=== PATIENT | female | born 1965 | race Caucasian/White ===

== ENCOUNTER 2021-07-12 15:20 | Emergency (ER) | payer BC ==
[2021-07-12] MEDS ORDERED: Ibuprofen 800 MG Tab PO ONE ×2 (15:21→16:46)
--- NOTE | 2021-07-12 15:40 | EDM.PDOC ---
ED HPI GENERAL MEDICAL PROBLEM - General Stated Complaint: FALL AND POSSIBLY BROKE RIB R SIDE Time Seen by Provider: 07/12/21 15:35 Source of Information: Reports: Patient History Limitations: Reports: No Limitations - History of Present Illness INITIAL COMMENTS - FREE TEXT/NARRATIVE: 56-year-old female who was carrying a box out to her son's truck at about 2:45 to 3 PM today and there was uneven ground next to a sidewalk and she stepped off of the sidewalk not knowing it and lost her balance and fell striking on her right side and also doing an end over end. She did not hit her head. There was no loss of consciousness. She did scrape both of her palms and her right knee and also struck her right anterior chest wall. She has no neck or back pain. She does have pain in her right her chest that she rates as a 10/10 with deep breath, palpation or certain movements and it as about a 7/10 now. It is a sharp pain. He has had no difficulty breathing. There has been no hemoptysis. She did have urine output since the injury and there was no blood in her urine. She presents to the emergency department via private vehicle with her and daughter. There are no other associated signs or symptoms. There are no other modifying factors. Onset: Today (2:45 PM) Duration: Constant Location: Reports: Chest, Upper Extremity, Left, Upper Extremity, Right, Lower Extremity, Right Quality: Reports: Sharp Severity: Moderate (to severe) Improves with: Reports: Rest Worsens with: Reports: Breathing, Other (Patient), Movement Context: Reports: Trauma Associated Symptoms: Reports: No Other Symptoms (Except as above) Treatments CONFERENCE SERVICE COORDINATOR: Reports: Other (see below) (Nothing) Right ribcage Pain Score (Numeric/FACES): 7 - Related Data Allergies Allergy/AdvReac Type Severity Reaction Status Date / Time codeine Allergy Vomiting Verified 07/12/21 15:33 Home Meds: Home Meds Escitalopram [Lexapro] 10 mg PO DAILY 07/12/21 [History] atorvaSTATin [Lipitor] 5 mg PO DAILY 07/12/21 [History] Past Medical History Psychiatric History: Reports: Anxiety, Depression - Past Surgical History Female Surgical History: Reports: Section (2) Musculoskeletal Surgical History: Reports: Knee Replacement Social & Family History - Tobacco Use Tobacco Use Status *Q: Never Tobacco User - Alcohol Use Alcohol Use Frequency: Socially (Had one glass of wine today.) - Living Situation & Occupation Living situation: Reports: Occupation: Employed (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 Denies: Throat Pain Respiratory: Denies: Shortness of Breath, Cough, Hemoptysis Cardiovascular: Reports: Chest Pain (Right anterior chest pain status post fall). Denies: Lightheadedness GI/Abdominal: Denies: Abdominal Pain, Nausea, Vomiting : Denies: Dysuria, Hematuria Musculoskeletal: Denies: Neck Pain, Back Pain Skin: Reports: Wound (Abrasions on palms and right knee). Denies: Rash Neurological: Denies: Dizziness, Headache Hematologic/Lymphatic: Denies: Easy Bleeding, Easy Bruising Immunologic: Reports: Other (Patient reports it has been less than 5 years since her last tetanus immunization.) ED EXAM, GENERAL - Physical Exam Exam: See Below Exam Limited By: No Limitations General Appearance: Alert, WD/WN, Moderate Distress (Appears in some pain but otherwise nontoxic.), Obese Eye Exam: Bilateral Eye: EOMI, Normal Inspection, PERRL Ears: Normal External Exam, Hearing Grossly Normal Ear Exam: Bilateral Ear: Auricle Normal Nose: Normal Inspection, Normal Mucosa, No Blood Throat/Mouth: Normal Inspection, Normal Oropharynx, Normal Voice, No Airway Compromise Head: Atraumatic, Normocephalic Neck: Normal Inspection, Supple, Non-Tender, Full Range of Motion Respiratory/Chest: No Respiratory Distress, Lungs Clear, Normal Breath Sounds, No Accessory Muscle Use, Other (Tenderness over the right anterior chest. No crepitus.) Cardiovascular: Normal Peripheral Pulses, Regular Rate, Rhythm, No Murmur Peripheral Pulses: 2+: Radial (L), Radial (R) GI/Abdominal: Normal Bowel Sounds, Soft, Non-Tender, No Mass Back Exam: Normal Inspection, Full Range of Motion Extremities: Normal Range of Motion, No Pedal Edema, Normal Capillary Refill Neurological: Alert, Oriented, CN II-XII Intact, No Motor/Sensory Deficits Psychiatric: Normal Affect Skin Exam: Warm, Dry, Normal Color, Wound/Incision (Abrasions on both palms and right knee. These are minor and not bleeding.) Course - Vital Signs Last Recorded V/S: Last Vital Signs Temp 36.3 C 07/12/21 15:20 Pulse 81 07/12/21 15:20 Resp 20 07/12/21 15:20 BP 142/87 H 07/12/21 15:20 Pulse Ox 96 07/12/21 15:20 - Orders/Labs/Meds Orders: Active Orders 24 hr Category Date Time Status Ribs 2V w Chest Rt [CR] Stat Exams 07/12/21 15:47 Taken Meds: Medications Discontinued Medications Generic Name Dose Route Start Last Admin Trade Name Freq PRN Reason Stop Dose Admin Ibuprofen 800 mg 07/12/21 16:46 07/12/21 16:51 Ibuprofen 800 Mg Tab PO 07/12/21 16:47 800 mg ONETIME ONE Administration - Radiology Interpretation Free Text/Narrative:: Chest x-ray with right rib detail shows no definite fracture. There is no pneumothorax or hemothorax. This is per my read - Re-Assessments/Exams Free Text/Narrative Re-Assessment/Exam: 07/12/21 16:35: X-ray was reviewed and I saw no definite fracture and there was no hemo-or pneumothorax. The patient does feel that the pain is somewhat worse now and after discussing various pain medication options, she would like ibuprofen for her pain. She does not want any narcotic type pain medicines. I have given her a take-home pack of ibuprofen as well as 800 mg orally now. Rib, contusion and abrasion discharge instructions were given to the patient. Precautions and reasons for return to the emergency department were discussed with the patient and with the patient's family while the patient was in the emergency department and were detailed in the patient's discharge instructions. Departure - Departure Time of Disposition: 16:45 Disposition: Home, Self-Care 01 Condition: Good Clinical Impression: Fall from other slipping, tripping, or stumbling, Chest wall contusion Right rib fracture Qualifiers: Encounter type: initial encounter Rib fracture type: single rib Fracture type: closed Qualified Code(s): S22.31XA - Fracture of one rib, right side, initial encounter for closed fracture Abrasion hand Qualifiers: Encounter type: initial encounter Laterality: unspecified laterality Qualified Code(s): S60.519A - Abrasion of unspecified hand, initial encounter Abrasion of knee, right Qualifiers: Encounter type: initial encounter Qualified Code(s): S80.211A - Abrasion, right knee, initial encounter - Discharge Information Instructions: Contusion, [id number], Abrasion, [id number], Rib Fracture, [id number] Referrals: Zoie Frankel, INDUCTION COORDINATION POWER ENGINEER [Primary Care Provider] - Forms: ED Department Discharge Additional Instructions: The x-ray of your chest and your right ribs shows no definite fracture. There was also no evidence of a collapse of your lung or bleeding around your lung. I do think you have a rib fracture in the area where you are having pain. There is really nothing specific to do for this at present. You should hold the area of your chest with a pillow and take deep breaths frequently to try to keep her lungs expanded. You can take Tylenol and ibuprofen as needed for ear pain. Back to the emergency department for marked increase in pain, coughing up blood, difficulty breathing, abdominal pain, unrelenting vomiting or any other concerning signs or symptoms Sepsis Event Note (ED) - Focused Exam Vital Signs: Vital Signs Temp Pulse Resp BP Pulse Ox 07/12/21 15:20 36.3 C 81 20 142/87 H 96 - My Orders Last 24 Hours: My Active Orders 07/12/21 15:47 Ribs 2V w Chest Rt [CR] Stat - Assessment/Plan Last 24 Hours: My Active Orders 07/12/21 15:47 Ribs 2V w Chest Rt [CR] Stat
--- NOTE | 2021-07-13 10:29 | CR ---
INDICATION: Fell, with injury, right-sided rib pain under breast. RIGHT RIBS WITH CHEST: PA view of the chest with three additional views of the right ribs were obtained, 07/12/21 and compared with 02/16/19. The heart remains normal in size and shape, although the left ventricle appears to be slightly more prominent. The aorta is slightly tortuous compared with the previous study with calcification in the arch. Mild to moderate hypertrophic degenerative changes are noted at the mid thoracic spine. Pulmonary markings are similar to the previous study without a definite active infiltrate, effusion, contusion or pneumothorax. Three views of the right ribs revealed a BB overlying the site of injury in the lower rib area beneath the right breast. There is a double contour to the cortices of the tips of the sixth and seventh right ribs, which likely is developmental, but makes it difficult to entirely exclude undisplaced fracture sites. No displaced rib fracture sites or other bony abnormality was suggested. MTDD
== END 2021-07-12 16:55 | disposition home or self-care (01) ==
LOC: FB.ED 15:20
DX: S22.31XA Fracture of one rib, right side, initial encounter for closed fracture (principal); S80.211A Abrasion, right knee, initial encounter; S60.511A Abrasion of right hand, initial encounter; S60.512A Abrasion of left hand, initial encounter; Z88.5 Allergy status to narcotic agent; Z79.899 Other long term (current) drug therapy; W01.198A Fall on same level from slipping, tripping and stumbling with subsequent striking against other object, initial encounter; Y92.480 Sidewalk as the place of occurrence of the external cause
CPT/HCPCS: 71101-RT; 99283-25; A9270-GY